=== PATIENT | female | born 1945 | race Hispanic/Latino ===

== ENCOUNTER 2017-10-15 11:31 | Day surgery (SDC) | payer MEDICARE ==
[~2017-10-15 11:31] MED LIST: IOPIDINE OD ONE; IOPIDINE ONE; MYDRIACYL OD ONE; MYDRIACYL ONE; NEOFRIN OD ONE; NEOFRIN ONE
[2017-10-15 12:42] VITALS: BP 132/54
== END 2017-10-15 13:20 | disposition home or self-care (01) ==
LOC: OR 11:31
PROVIDERS: ATTEND Specialist
DX: H26.491 Other secondary cataract, right eye (principal); J44.9 Chronic obstructive pulmonary disease, unspecified; E78.00 Pure hypercholesterolemia, unspecified; K21.9 Gastro-esophageal reflux disease without esophagitis; I10 Essential (primary) hypertension; E03.9 Hypothyroidism, unspecified; Z88.2 Allergy status to sulfonamides; Z91.012 Allergy to eggs; Z88.5 Allergy status to narcotic agent; Z88.8 Allergy status to other drugs, medicaments and biological substances; Z91.018 Allergy to other foods; Z79.84 Long term (current) use of oral hypoglycemic drugs; Z79.899 Other long term (current) drug therapy; Z79.4 Long term (current) use of insulin; Z87.891 Personal history of nicotine dependence; Z79.82 Long term (current) use of aspirin; Z95.1 Presence of aortocoronary bypass graft; Z98.890 Other specified postprocedural states; Z86.2 Personal history of diseases of the blood and blood-forming organs and certain disorders involving the immune mechanism; Z85.828 Personal history of other malignant neoplasm of skin; Z98.42 Cataract extraction status, left eye; Z98.41 Cataract extraction status, right eye
CPT/HCPCS: 82962